=== PATIENT | female | born 1940 | race African-American/Black ===

== ENCOUNTER 2018-11-05 07:39 | Emergency (ER) | payer OTHER ==
--- OUTSIDE RECORDS SUMMARY | 2018-11-05 07:43 | XMS REPORT ---
:1940 [facility] Providers Name Role Phone Beck Bernstein Provider Role Unavailable Encounters Encounter Location Date Unknown [place] September 13, 2014 Unknown [place], [place] Nov 29, 2014 Other [place] May 28, 2014 Refill [place] Jan 25, 2014 Unknown Beck [place], [place] Dec 10, 2013 Other [place] Jun 07, 2015 Unknown [place] Feb 23, 2014 Unknown Beck [place] Jun 03, 2014 Test results Beck [place], [place] Apr 06, 2015 Refill Beck [place] Jan 05, 2014 Other Beck [place] Mar 25, 2014 Problems Problem Type Condition ICD-9 Code Onset Dates Condition Status Problem COPD (chronic obstructive J44.9 Active pulmonary disease) Problem Essential (primary) hypertension I10 Active Problem Hypercholesteremia E78.0 Active Problem Diabetes type 2, uncontrolled E11.65 Active Problem Diabetes mellitus, controlled E11.9 Active Problem Asthma attack 493.92 Active Problem CAD (coronary artery disease) I25.10 Active Problem Asthma J45.909 Active Medications Medication Code System Code Instructions Start End Status Dosage Date Date Duetact MEDISPAN [address]-97 30-2 MG Orally Jun 07, Active 1 tablet Once a day 2015 with the first main meal Januvia MiFiSPAN [id number] 100 mg Inactive 1 TABLET ONCE A DAY ORALLY Social History Social History Element Qualifiers Date Reported Alcohol no. June 17, 2015 Tuberculosis Exposure: No. June 17, 2015 Tobacco Use: . Status: Never smoker June 17, 2015 Diet: no. June 17, 2015 Depression no. June 17, 2015 Caffeine: no. June 17, 2015 Exercise: no. June 17, 2015 Fall Risk Assessment no. June 17, 2015 Summary Purpose [employer] Submission
--- OUTSIDE RECORDS SUMMARY | 2018-11-05 07:43 | XMS REPORT ---
:1940 [facility] Team Providers Name Role Phone Beck Bernstein Provider Role Unavailable Encounters Encounter Location Date Unknown Beck [place] September 13, 2014 Unknown Beck Bernstein [place], [place] Nov 29, 2014 Other Beck Bernstein [place], [place] May 28, 2014 Refill Beck Bernstein [place] Jan 25, 2014 Unknown Beck Bernstein MD, [place] Dec 10, 2013 Unknown Beck Bernstein [place], [place] Feb 23, 2014 Unknown Beck Bernstein MD, [place] Jun 03, 2014 Test results Beck Bernstein MD, [place] Apr 06, 2015 Refill Beck Bernstein [place], [place] Jan 05, 2014 Other Beck Bernstein MD, [place] Mar 25, 2014 Unknown Beck Bernstein MD, [place] Apr 29, 2015 Refill Beck Bernstein [place], [place] September 14, 2015 Other Beck Bernstein MD, [place] Jun 07, 2015 Unknown Beck Bernstein [place], [place] June 24, 2015 Problems Problem Type Condition ICD-9 Code Onset [...] Medications Medication Code System Code Instructions Start Date End Date Status Dosage Duetact MEDISPAN 34796-787 30-2 MG Orally as Active TAKE 1 2-30 directed TABLET ONE TIME DAILY WITH THE FIRST MAIN MEAL Social History Social History Element Qualifiers Date Reported Alcohol no. September 22, 2015 Tuberculosis Exposure: No. September 22, 2015 Tobacco Use: . Status: Never smoker September 22, 2015 Diet: no. September 22, 2015 Depression no. September 22, 2015 Caffeine: no. September 22, 2015 Exercise: no. September 22, 2015 Fall Risk Assessment no. September 22, 2015 Family history Qualifier Description Comment Date Reported Maternal Grandmother Comment not available September 22, 2015 Paternal Grandmother Comment not available September 22, 2015 Siblings alive Comment not available September 22, 2015 Maternal Grandfather Comment not available September 22, 2015 Children Comment not available September 22, 2015 Father Comment not available September 22, 2015 Paternal Grandfather Comment not available September 22, 2015 Mother Comment not available September 22, 2015 Other: Comment not available September 22, 2015 Summary Purpose [employer] Submission
--- OUTSIDE RECORDS SUMMARY | 2018-11-05 07:43 | XMS REPORT ---
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 Problem BMI 38.0-38.9,adult Z68.38 Active Problem Morbid (severe) obesity due to E66.01 Active excess calories Problem Gastroesophageal reflux disease K21.9 Active without esophagitis Problem Asthma J45.909 Active Problem CAD (coronary artery disease) I25.10 Active Problem Body mass index (BMI) of 40.0-44.9 Z68.41 Active in adult Problem Diabetes mellitus, controlled E11.9 Active Problem Mild cognitive impairment G31.84 Active Problem Cataract extraction status of left Z98.42 Active eye Problem COPD (chronic obstructive pulmonary J44.9 Active disease) Problem senior care current use of aspirin Z79.82 Active Problem senior care current use of insulin Z79.4 Active Problem 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
--- OUTSIDE RECORDS SUMMARY | 2018-11-05 07:43 | XMS REPORT | Continuity of Care Document ---
:1940 Author Organization [employer] [facility] Care Team Providers Name Role Phone [employer] [facility] Unavailable Unavailable Problems Problem Status Onset Classification Date Comments Source Date Reported ED Active 12/20/19 [facility] Polymyalgia Active 10/23/19 Problem 10/29/2017 Data rheumatica8 14 migrated Medical from [facility] on 09/11/14. [place] Polymyalgia Active 10/23/19 Problem 08/17/2018 Data rheumatica7 14 migrated Medical from [facility] on 09/11/14. Peripheral Active 07/10/19 Problem 10/29/2017 Data circulatory disorder 14 migrated Medical associated with type from [facility] [employer], 2 diabetes mellitus7 [facility] [place] on 09/11/14. [place] Peripheral Active 07/10/19 Problem 08/17/2018 Data circulatory disorder 14 migrated Medical associated with type from [facility] 2 diabetes mellitus6 [facility] on 09/11/14. Acute renal failure Active 06/26/19 Problem 08/17/2018 Data syndrome1 14 migrated Medical from [facility], [facility] on 09/11/14. [facility] Chronic kidney Active 06/26/19 Problem 08/17/2018 Data disease stage 33 14 migrated Medical from [facility], [facility] on 09/11/14. [facility] Gastroesophageal Active 03/23/20 Problem 08/17/2018 Data reflux disease5 13 migrated Medical from [facility], [facility] [place] on 09/11/14. [facility] Renal disorder Active 10/28/19 Problem 10/29/2017 Data associated with type 13 migrated Medical 1 diabetes mellitus9 from [facility] on 09/11/14. [facility] Renal disorder Active 10/28/19 Problem 08/17/2018 Data associated with type 13 migrated Medical 1 diabetes mellitus8 from [facility] on 09/11/14. Anemia2 Active 03/04/20 Problem 08/17/2018 Data 12 migrated Medical from [facility] [employer] [place] on 09/11/14. [place] Presence of Active Problem 08/30/2017 Beck J artificial larynx Bernstein Slow transit Active Problem 08/30/2017 Beck J constipation Bernstein Presence of coronary Active Problem 08/30/2017 Beck J angioplasty implant Bernstein and graft Diabetes mellitus, Active Problem 08/30/2017 Beck J controlled Bernstein Asthma Active Problem 08/30/2017 Beck J Bernstein Body mass index of Active Problem 08/30/2017 Beck J 40.0-44.9 in adult Bernstein Essential Active Problem 08/30/2017 Beck J hypertension Bernstein Gastro-esophageal Active Problem 08/30/2017 Beck J reflux disease Bernstein without esophagitis CAD Active Problem 08/30/2017 Beck J Bernstein Diabetes type 2, Active Problem 08/30/2017 Beck J uncontrolled Bernstein Type 2 diabetes Active Problem 08/30/2017 Beck J mellitus with Bernstein diabetic polyneuropathy COPD Active Problem 08/30/2017 Beck J Bernstein Morbid obesity due to Active Problem 08/30/2017 Beck J excess calories Bernstein Cataract extraction Active Problem 08/30/2017 Beck J status of left eye Bernstein Secondary Active Problem 08/30/2017 Beck J noninfectious Bernstein iridocyclitis of right eye shelter current use Active Problem 08/30/2017 Beck [place] of aspirin Bernstein Vitreous degeneration Active Problem 08/30/2017 Beck J of right eye Bernstein Mild cognitive Active Problem 08/30/2017 Beck 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, [facility] [place] on 09/11/14. [facility] Hypercholesterolemia6 Active Problem 10/29/2017 Data migrated Medical from [facility], [facility] on 09/11/14. [facility] Hyperlipidemia Active Problem 08/17/2018 Medical Group Morbid obesity Active Problem 08/17/2018 Medical Group Orthostatic Active Problem 08/17/2018 hypotension Medical Group Medications Medication Details Route Status Patient Ordering Order Source Instructions Provider Date tizanidine 4 mg 4 mg=1 tab, Active oral tablet PO, 019 Medical Bedtime, Group PRN for muscle spasm, # 30 tab, 0 Refill(s), Pharmacy: [facility] [id number] Ipratropium 2 spray, Active [place] 0.042 NASAL, TID, 018 Medical MG/ACTUAT PRN for Group Metered Dose cold Nasal [place] symptoms, [Atrovent] [place] in both nostrils, # 1 ea, 1 Refill(s), Pharmacy: [facility] [id number] losartan 100 mg See Active oral tablet Instruction 018 Medical s, TAKE 1 Group TABLET BY MOUTH DAILY, # 90 tab, 1 Refill(s), [facility]: [facility] carvedilol 12.5 12.5 mg=1 Active MH mg oral tablet tab, PO, 018 Medical Q12H, # 180 Group tab, 1 Refill(s), [facility]acy: [facility] Nexium See Active Instruction 018 Medical s, PO Group Daily, 0 Refill(s) atorvastatin 40 40 mg=1 Active MH mg oral tablet tab, PO, 018 Medical Bedtime, # Group 30 tab, 0 Refill(s) losartan 100 mg 100 mg=1 Active oral tablet tab, PO, 018 Medical Daily, # 90 Group tab, 0 Refill(s), Pharm[facility]: [facility] Breo Ellipta 1 puff, Active 100 mcg-25 mcg INHALATION, 018 Medical inhalation Daily, # 1 Group powder ea, 1 Refill(s), Pharmacy: [facility] [id number] Ranitidine 150 150 mg=1 Active MH MG Oral Capsule cap, PO, 018 Medical BID, # 180 Group cap, 0 Refill(s), Pharmacy: [facility] Ipratropium 2 spray, No MH [place] 0.042 NASAL, TID, Longer 018 Medical MG/ACTUAT PRN for Active Group Metered Dose cold Nasal [place] symptoms, [Atrovent] [place] in both nostrils, X 30 day, # 1 ea, 0 Refill(s), Pharmacy: [facility] [address] meclizine 12.5 12.5 mg=1 No MH mg oral tablet tab, PO, Longer 018 Medical BID, PRN Active Group Dizziness, X 15 day, # 30 tab, 0 Refill(s), Pharmacy: [facility] [address] Centrum Silver 1 tab, PO, Active MH Women's Daily, 0 018 Medical Refill(s) Group losartan 100 mg 100 mg=1 Active MH oral tablet tab, PO, 018 Medical Daily, # 30 Group tab, 0 Refill(s) Nitroglycerin 0.4 mg=1 Active MH 0.4 MG tab, SL, 018 Medical Sublingual Q5Min, PRN Group Tablet Chest Pain, [Nitrostat] # 100 tab, 0 Refill(s) clopidogrel 75 75 mg=1 Active MH mg oral tablet tab, PO, 018 Medical Daily, # 30 Group tab, 0 Refill(s) aspirin 325 mg 325 mg=1 Active MH tablet tab, PO, 018 Medical Q4H, PRN Group Fever, # 60 tab, 0 Refill(s) Ranitidine 150 150 mg=1 No MH MG Oral Capsule cap, PO, Longer 018 Medical BID, 0 Active Group Refill(s) empagliflozin 25 mg=1 Active MH 25 MG Oral tab, PO, 018 Medical Tablet QAM, 0 Group [Jardiance] Refill(s) 0.5 ML SUB-Q, 0 Active MH dulaglutide 1.5 Refill(s) 018 Medical MG/ML Prefilled Group Syringe [Trulicity] carvedilol 12.5 12.5 mg=1 Active MH mg oral tablet tab, PO, 018 Medical Q12H, # 60 Group tab, 0 Refill(s) Breo Ellipta 1 puff, Active MH 100 mcg-25 mcg INHALATION, 018 Medical inhalation Daily, 0 Group powder Refill(s) Breo Ellipta 1 puff Inhalation Active 100-25 MCG/INH Bernstein Beck Inhalation 017 J Once a day Bernstein Invokana 1 tablet Orally Active 300 MG Orally Bernstein Beck Once a day 016 J Bernstein Duetact 1 tablet Orally Active 30-2 MG Orally Bernstein Beck with the Once a day 016 J first main Bernstein meal Amaryl 1 tablet Orally Active 2 MG Orally Bernstein Beck with Once a day 016 J breakfast Bernstein or the first main meal of the day Januvia 1 TABLET NA No 100 mg Bernstein Beck ONCE A DAY Longer J ORALLY Active Bernstein Duetact TAKE 1 Orally Active 30-2 MG Orally Bernstein Beck TABLET ONE as directed J TIME DAILY Bernstein WITH THE FIRST MAIN MEAL Allergies, Adverse Reactions, Alerts Substance Category Reaction Severity Reaction Status Date Comments Source type Reported Food Shrimp Assertion Drug Active allergy Medical Group Immunizations Immunization Date Site Status Last Comments Source Given Updated Hx influenza Left completed [facility] Medical vaccine-unspecif 2 Deltoid Comment: Group, ied<sup>1</sup> fluzone. [place] Migrated from [facility] ; Data migrated from [email or web address] on 05/17/2015. Results No Data Provided for This Section Pathology Reports No Data Provided for This Section Diagnostic Reports No Data Provided for This Section Consultation Notes No Data Provided for This Section Discharge Summaries No Data Provided for This Section History and Physicals No Data Provided for This Section Vital Signs Vital Sign Value Date Comments Source Height 167.64 cm 05/19/2018 Medical Group Heart Rate 85 05/19/2018 Medical Group Temperature Oral (F) 98.3 F 05/19/2018 Medical Group Systolic (mm Hg) 155 05/19/2018 Medical Group Diastolic (mm Hg) 88 05/19/2018 Medical [facility] Heart Rate 76 01/28/2018 Medical Group Systolic (mm Hg) 134 01/28/2018 Medical Group Diastolic (mm Hg) 82 01/28/2018 Medical Group Weight 107.784 01/28/2018 Medical Group Systolic (mm Hg) 156 01/28/2018 Medical Group Diastolic (mm Hg) 84 01/28/2018 Medical Group Temperature Oral (F) 98.1 F 01/28/2018 Medical Group Heart Rate 86 01/28/2018 Medical Group BMI Calculated 38.98 07/23/2017 Medical Group Weight 109.545 07/23/2017 Medical Group Height 167.64 cm 07/23/2017 Medical Group Temperature Oral (F) 98.1 F 07/23/2017 Medical Group Systolic (mm Hg) 144 07/23/2017 Medical Group Diastolic (mm Hg) 75 07/23/2017 Medical Group Heart Rate 87 07/23/2017 Medical Group Weight 108.352 07/02/2017 Medical Group Height 167.64 cm 07/02/2017 Medical Group BMI Calculated 38.56 07/02/2017 Medical Group Temperature Oral (F) 97.6 F 07/02/2017 Medical Group Heart Rate 76 07/02/2017 Medical Group Systolic (mm Hg) 159 07/02/2017 Medical Group Diastolic (mm Hg) 85 07/02/2017 Medical Group Encounters Location Location Encounter Encounter Reason Attending ADM DC Status Source Details Type Number For Provider Date Date Visit [facility] Outpt Diag [id number] Rona Raul 10/20 10/21 [facility] [place] Beck J Unknown [id number] 12/10 12/10 [facility], [id number]- /2013 NATHNAIEL Golden MD [id number] [facility] Unknown [id number] 12/10 12/10 Beck [facility], [id number]-8bc6- /2013 NATHANIEL Golden MD [id number] [facility] Unknown [id number] 12/10 12/10 [facility], [id number]-[id number]- /2013 NATHANIEL Golden MD [id number] [facility] Unknown [id number] 12/10 12/10 Beck Bernstein, e-[id number]- /2013 J NATHANIEL GARCIA [id number] Bernstein Beck J Refill [id number] 01/05 01/05 Beck Bernstein, 3-5ws7-h9r9- J NATHANIEL GARCIA [id number] Bernstein Beck J Refill [id number] 01/05 01/05 Beck Bernstein, [id number]- J NATHANIEL GARCIA [id number] Bernstein Beck J Refill [id number] 01/05 01/05 Beck Bernstein, [id number]-1567- J NATHANIEL GARCIA [id number] Bernstein Beck J Refill [id number] 01/05 01/05 Beck Bernstein, [id number]- J NATHANIEL GARCIA [id number] [facility] [id number] 01/25 01/25 Beck Bernstein, [id number]- J NATHANIEL GARCIA [id number] Bernstein Beck J Refill [id number] 01/25 01/25 Beck Bernstein, [id number]-[id number]- NATHANIEL Golden MD [id number] Bernsteni Beck J Refill [id number] 01/25 01/25 Beck Bernstein, [id number]- J NATHANIEL GARCIA [id number] Bernstein Beck J Refill [id number] 01/25 01/25 Beck Bernstein, [id number]- J NATHANIEL GARCIA [id number] Bernstein Beck J Unknown [id number] 02/23 02/23 Beck Bernstein, n-[id number]- /2013 J NATHANIEL GARCIA [id number] Bernstein Beck J Unknown [id number] 02/23 02/23 Beck Bernstein, [id number]- /2013 J NATHANIEL GARCIA [id number] Bernstein Beck J Unknown [id number] 02/23 02/23 Beck Bernstein, [id number]-b659- /2013 J NATHANIEL GARCIA [id number] [facility] [id number] 02/23 02/23 Beck Bernstein, [id number]- /2013 J NATHANIEL GARC[facility] [id number] [facility] [id number] 03/25 03/25 Beck Bernstein, 1-9c7m-hv69- J NATHANIEL GARCIA [id number] [facility] Other [id number] 03/25 03/25 Beck Bernstein, k-95tm-hum5- /2013 J NATHANIEL GARCIA [id number] [facility] Other [id number] 03/25 03/25 Beck Bernstein, [id number]-6736- /2013 NATHANIEL Golden MD [id number] [facility] Other [id number] 03/25 03/25 [facility], [id number]- /2013 NATHANIEL Golden MD [id number] [facility] Other [id number] 05/28 05/28 Beck Bernstein, k-[id number]- /2014 J NATHANIEL GARCIA [id number] [facility] Other [id number] 05/28 05/28 [facility], g-4nv9-7her- /2014 NATHANIEL Golden MD [id number] [facility] Other [id number] 05/28 05/28 [facility], b-[id number]- /2014 J , NATHANIEL [id number] [facility] Other [id number] 05/28 05/28 [facility], 1-51o7-o827- /2014 J , NATHANIEL [id number] [facility] J Unknown [id number] 06/03 06/03 [facility], d-[id number]- /2014 J NATHANIEL GARCIA [id number] [facility] J Unknown [id number] 06/03 06/03 [facility], [id number]-[id number]-[id number]- /2014 J NATHANIEL GARCIA [id number] [facility] J Unknown [id number] 06/03 06/03 [facility], [id number]-a943- /2014 J NATHANIEL GARCIA [id number] [facility] Unknown [id number] 06/03 06/03 [facility], p-0733-468n- J NATHANIEL GARCIA [id number] [facility] Unknown [id number] 09/13 09/13 [facility], 4-1612-e77r- /2014 J NATHANIEL GARCIA [id number] [facility] Unknown [id number] 09/13 09/13 [facility], 1-1q6b-o53w- /2014 J NATHANIEL GARCIA [id number] [facility] J Unknown [id number] 09/13 09/13 [facility], 8-3y7g-s15a- J NATHANIEL GARCIA [id number] [facility] J Unknown [id number] 09/13 09/13 [facility], 1-029n-844a- /2014 J NATHANIEL GARCIA [id number] [facility] Unknown [id number] 11/29 11/29 [facility], p-[id number]-v251- /2014 J , NATHANIEL [id number] [facility] J Unknown [id number] 11/29 11/29 [facility], 3-486b-ypnd- /2014 J , NATHANIEL [id number] [facility] J Unknown [id number] 11/29 11/29 [facility], 6-42po-q152- /2014 J , NATHANIEL [id number] [facility] Unknown [id number] 11/29 11/29 [facility], 1-3ms4-vc32- /2014 J , NATHANIEL [id number] [facility] Test [id number] 04/06 04/06 [facility], results [id number]- J , NATHANIEL [id number] [facility] Test [id number] 04/06 04/06 [facility], results [id number]- /2014 J , NATHANIEL [id number] [facility] Test [id number] 04/06 04/06 [facility], results [id number]- /2014 J , [place] [id number] [facility] Test [id number] 04/06 04/06 [facility], results [id number]- /2014 J NATHANIEL GARCIA [id number] [facility] Unknown [id number] 04/29 04/29 [facility], [id number]- /2015 J NATHANIEL GARCIA [id number] [facility] Unknown [id number] 04/29 04/29 [facility], [id number]- /2015 J NATHANIEL GARCIA [id number] Bernstein Beck J Unknown [id number] 04/29 04/29 Beck Bernstein, e-[id number]-[id number]- /2015 J NATHANIEL GARCIA [id number] [facility] Other [id number] 06/07 06/07 Beck Bernstein, 8-0528-d159- /2015 J NATHANIEL GARCIA [id number] [facility] Other [id number] 06/07 06/07 Beck Bernstein, [id number]- /2015 J NATHANIEL GARCIA [id number] [facility] Other [id number] 06/07 06/07 [facility] Bernstein, g-[id number]-30k5- /2015 J NATHANIEL GARCIA [id number] [facility] Other [id number] 06/07 06/07 [facility] Bernstein, [id number]-2981- /2015 J NATHANIEL GARCIA [id number] [facility] Unknown [id number] 06/23 06/23 [facility], 0-1303-2e14- J NATHANIEL GARCIA [id number] [facility] J Unknown [id number] 06/23 06/23 [facility], [id number]-lwp0- /2015 NATHANIEL Golden MD [id number] [facility] Unknown [id number] 06/23 06/23 [facility], 1-3l30-x78y- /2015 NATHANIEL Golden MD [id number] [facility] J Refill [id number] 09/13 09/13 Beck Bernstein, 5-51di-03j0- /2015 NATHANIEL Golden MD [id number] [facility] [id number] Daryn Henson 12/19 12/20 [facility] [place] /2015 [place] Outpatient [id number] ISABELLA 07/02 [facility] Outpatient [id number] Isabella 07/02 07/03 Medicine [place] /2017 Medical [facility] Outpatient [id number] ISABELLA 07/[address] [facility]ER [facility] Family Outpatient [id number] Isabella 07/23 07/24 [facility] [place] /2017 Medical [facility] Outpatient [id number] ISABELLA 01/28 Active [facility] Outpatient [id number] Isabella 01/28 01/29 [facility] [place] /2017 Medical [facility] Outpatient [id number] ISABELLA 05/19 [facility] [id number] Isabella 05/19 05/20 [facility] [place] /2018 Medical [facility] Procedures Procedure Code Date Perfomer Comments Source Bone density [id number] 01/28/2018 Never done Medical scan<sup>1</sup> Group Diabetic retinal [id number] 06/28/2017 wnl per pt Medical eye Group exam<sup>2</sup> Full sleep study [id number] 12/20/2015 Medical Group Cataract [id number] 09/05/2015 Right Eye - Medical surgery<sup>1</sup Cataract Group > Cataract [id number] 09/05/2015 Right Eye - Medical surgery<sup>3</sup Cataract Group > Fecal occult blood [id number] 07/11/2012 normal Medical screening<sup>4</s Group up> Operation<sup>2</s [id number] 10/21/2010 Stent Implant Medical up> - RCA Group Operation<sup>5</s [id number] 10/21/2010 Stent Implant Medical up> - RCA Group Colonoscopy [id number] 04/15/2010 Medical Group Mammogram<sup>6</s [id number] wnl per pt Medical up> Group Assessment and Plan No Data Provided for This Section Plan of Care No Data Provided for This Section Social History Social History Date Source Social History TypeResponse 05/19/2018 Medical Group Smoking Status Never smoker; Type: Cigarettes; Ready to change: No; Concerns about tobacco use in household: No; Exposure to Tobacco Smoke None; Cigarette Smoking Last 365 Days No; Reg Smoking Cessation Counseling No entered on: 05/19/18 No data available for this section 12/21/2015 [employer] Social History ElementQualifiersDate Reported 09/22/2015 Beck Bernstein Alcohol no. September 22, 2015 Tuberculosis Exposure: No. September 22, 2015 Tobacco Use: . Status: Never smoker September 22, 2015 Diet: no. September 22, 2015 Depression no. September 22, 2015 Caffeine: no. September 22, 2015 Exercise: no. September 22, 2015 Fall Risk Assessment no. September 22, 2015 Family History Value Date Source QualifierDescriptionCommentDate Reported 09/30/2015 Beck Bernstein Maternal Grandmother Comment not available September 22, [...] Other: Comment not available September 22, 2015 Advance Directives No Data Provided for This Section Functional Status No Data Provided for This Section
--- OUTSIDE RECORDS SUMMARY | 2018-11-05 07:43 | XMS REPORT ---
:1940 Author Organization [employer] Care Team Providers Name Role Phone Beck Bernstein Provider Role Unavailable Allergies No Known Allergies Problems Problem Type Condition Code Onset Dates Condition Status Problem Slow transit constipation K59.01 Active Problem Diabetes type 2, uncontrolled E11.65 Active Problem Gastro-esophageal reflux disease K21.9 Active without esophagitis Problem BMI 38.0-38.9,adult Z68.38 Active Problem Morbid (severe) obesity due to E66.01 Active excess calories Problem Body mass index (BMI) of 40.0-44.9 Z68.41 Active in adult Problem BMI 37.0-37.9, adult Z68.37 Active Problem CAD (coronary artery disease) I25.10 Active Problem Essential (primary) hypertension I10 Active Problem Diabetes mellitus, controlled E11.9 Active Problem Asthma J45.909 Active Problem care home current use of aspirin Z79.82 Active Problem Mild cognitive impairment G31.84 Active Problem 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
--- OUTSIDE RECORDS SUMMARY | 2018-11-05 07:43 | XMS REPORT ---
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 Active Problem Slow transit constipation K59.01 Active Problem Presence of coronary angioplasty Z95.5 Active implant and graft Problem Diabetes mellitus, controlled E11.9 Active Problem Asthma J45.909 Active Problem Body mass index (BMI) of 40.0-44.9 Z68.41 Active in adult Problem Essential (primary) hypertension I10 Active Problem Gastro-esophageal reflux disease K21.9 Active without esophagitis Problem CAD (coronary artery disease) I25.10 Active Problem Diabetes type 2, uncontrolled E11.65 Active Problem 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
--- OUTSIDE RECORDS SUMMARY | 2018-11-05 07:43 | XMS REPORT ---
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 Problem Diabetes type 2, uncontrolled E11.65 Active Problem Essential (primary) hypertension I10 Active Problem Body mass index (BMI) of 40.0-44.9 Z68.41 Active in adult Problem Diabetes mellitus, controlled E11.9 Active Problem COPD (chronic obstructive pulmonary J44.9 Active disease) Problem CAD (coronary artery disease) I25.10 Active Problem Asthma J45.909 Active 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.4 Active Problem 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
--- OUTSIDE RECORDS SUMMARY | 2018-11-05 07:43 | XMS REPORT ---
:1940 [facility] Care Team Providers Name Role Phone Beck [...] Beck Bernstein MD, PA Apr 29, 2015 Other Beck Bernstein MD, PA Jun [...] Medication Code System Code Instructions Start End Date Status Dosage Date Amaryl MEDISPAN 67005-538 2 MG Orally Once Apr 29, Active 1 tablet with 2-10 a day 2016 breakfast or the first main meal of the day Social History Social History Element Qualifiers Date [...]
--- OUTSIDE RECORDS SUMMARY | 2018-11-05 07:43 | XMS REPORT ---
:1940 [facility] Team Providers Name Role Phone Beck [...] Instructions Start Date End Date Status Dosage Invokana MEDISPAN 28523-471 300 MG Orally June 23July 23, Active 1 tablet 1-30 Once a day 2015 2015 Social History Social History Element Qualifiers Date [...]
--- OUTSIDE RECORDS SUMMARY | 2018-11-05 07:43 | XMS REPORT ---
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
--- OUTSIDE RECORDS SUMMARY | 2018-11-05 07:44 | XMS REPORT | Summary of Care ---
:1940 Author Organization [facility] Address [address] [place] [address]- Encounter HQ Arthurr_ev(FIN) [id number] Date(s): 07/23/17 - 07/23/17 [place] [address] [facility] [place] [address]- [phone] Discharge Disposition: Home or Self Care Attending Physician: Isabella Antony MD Vital Signs Most recent to oldest [Reference Range]: 1 Height 167.64 cm (07/23/17 4:09 PM) Temperature Oral [96.4-99.1 DegF] 98.1 DegF (07/23/17 4:09 PM) Blood Pressure [90-140/60-90 mmHg] 144/75 mmHg *HI* (07/23/17 4:09 PM) Peripheral Pulse Rate [60-100 bpm] 87 bpm (07/23/17 4:09 PM) Weight 109.545 kg (07/23/17 4:09 PM) Body Mass Index 38.98 m2 (07/23/17 4:09 PM) Problem List Condition Effective Dates Status Health Status Informant Acute renal failure syndrome1 06/25/13 Active Anemia2 03/04/12 Active Benign essential HTN(Confirmed) Active Chronic kidney disease stage 33 06/25/13 Active Coronary atherosclerosis4 Active Gastroesophageal reflux disease5 03/23/13 Active Hypercholesterolemia6 Active Hyperlipidemia(Confirmed) Active Morbid obesity(Confirmed) Active Orthostatic hypotension(Confirmed) Active Peripheral circulatory disorder 07/09/13 Active associated with type 2 diabetes mellitus7 Polymyalgia rheumatica8 10/22/13 Active Renal disorder associated with type 1 10/27/12 Active diabetes mellitus9 1Data migrated from [employer] on 09/11/14.2Data migrated from [employer] on 09/11/14.3Data migrated from [employer] on 09/11/14.4Data migrated from [employer] on 09/11/14.5Data migrated from [employer] on 09/11/14.6Data migrated from [employer] on 09/11/14.7Data migrated from [employer] on 09/11.8Data migrated from [employer] on 09/11/14.9Data migrated from [employer] on 09/11/14. Allergies, Adverse Reactions, Alerts Substance Reaction Severity Status NKDA1 Active Food Shrimp Active 1Data migrated from [employer] on 06/07/15. Originally documented as NKA. Medications Breo Ellipta 100 mcg-25 mcg inhalation powder 1 puff, INHALATION, Daily, # 1 ea, 1 Refill(s), Pharmacy: [id number] Start Date: 09/12/17 Status: Orderedlosartan 100 mg oral tablet 100 mg=1 tab, PO, Daily, # 90 tab, 0 Refill(s), Pharmacy: [facility] Start Date: 10/18/17 Status: Ordered Results No data available for this section Immunizations Given and Recorded Vaccine Date Status Refusal Reason Hx influenza vaccine-unspecified1 03/04/12 Given 1Result Comment: fluzone. Migrated from OBS ; Data migrated from [employer] on 05/17/2015. Procedures Procedure Date Related Diagnosis Body Site Status Cataract surgery1 09/05/15 Completed Operation2 10/21/10 Completed Colonoscopy 04/15/10 Completed 1Right Eye - Xvfqdyhe4Dnvhq Implant - RCA Social History Social History Type Response Smoking Status Never smoker; Type: Cigarettes; Ready to change: No; Concerns about tobacco use in household: No; Exposure to Tobacco Smoke None; Cigarette Smoking Last 365 Days No; Reg Smoking Cessation Counseling No entered on: 07/23/17 Assessment and Plan No data available for this section
--- OUTSIDE RECORDS SUMMARY | 2018-11-05 07:44 | XMS REPORT | Summary of Care ---
:1940 Author Organization [facility] Address [address] [place] [address]- Encounter HQ Shital_ev(FIN) [id number] Date(s): 01/28/18 - 01/28/18 [place] [address] [place] [address]- [phone] Discharge Disposition: Home or Self Care Attending Physician: Isabella Antony MD Vital Signs Most recent to oldest [Reference Range]: 1 2 Temperature Oral [96.4-99.1 DegF] 98.1 DegF (01/28/18 1:38 PM) Blood Pressure [90-140/60-90 mmHg] 134/82 mmHg 156/84 mmHg (01/28/18 1:55 PM) *HI* (01/28/18 1:38 PM) Peripheral Pulse Rate [60-100 bpm] 76 bpm 86 bpm (01/28/18 1:55 PM) (01/28/18 1:38 PM) Weight 107.784 kg (01/28/18 1:38 PM) Problem List Condition Effective Dates Status Health Status Informant Acute renal failure syndrome1 06/25/13 Active Anemia2 03/04/12 Active Benign essential HTN(Confirmed) Active Chronic kidney disease stage 33 06/25/13 Active Coronary atherosclerosis4 Active Gastroesophageal reflux disease5 03/23/13 Active Hyperlipidemia(Confirmed) Active Morbid obesity(Confirmed) Active Orthostatic hypotension(Confirmed) Active Peripheral circulatory disorder 07/09/13 Active associated with type 2 diabetes mellitus6 Polymyalgia rheumatica7 10/22/13 Active Renal disorder associated with type 1 10/27/12 Active diabetes mellitus8 1Data migrated from [employer] on 09/11/14.2Data migrated from [employer] on 09/11/14.3Data migrated from [employer] on 09/11/14.4Data migrated from [employer] on 09/11/14.5Data migrated from [employer] on 09/11/14.6Data migrated from [employer] on 09/11/14.7Data migrated from [employer] on 09/11.8Data migrated from [employer] on 09/11/14. Allergies, Adverse Reactions, Alerts Substance Reaction Severity Status NKDA1 Active Food Shrimp Active 1Data migrated from [employer] on 06/07/15. Originally documented as NKA. Medications atorvastatin 40 mg oral tablet 40 mg=1 tab, PO, Bedtime, # 30 tab, 0 Refill(s) Start Date: 01/28/18 Status: OrderedAtrovent Nasal 0.06% nasal spray 2 spray, NASAL, TID, PRN for cold symptoms, [place] in both nostrils, # 1 ea, 1 Refill(s), Pharmacy: [id number] Start Date: 01/28/18 Status: Orderedcarvedilol 12.5 mg oral tablet 12.5 mg=1 tab, PO, Q12H, # 180 tab, 1 Refill(s), Pharmacy: [facility] Start Date: 01/28/18 Status: Orderedlosartan 100 mg oral tablet See Instructions, TAKE 1 TABLET BY MOUTH DAILY, # 90 tab, 1 Refill(s), Pharmacy : [facility] Start Date: 01/28/18 Status: OrderedNexIUM See Instructions, PO Daily, 0 Refill(s) Start Date: 01/28/18 Status: Ordered Results No data available for this section Immunizations Given and Recorded Vaccine Date Status Refusal Reason Hx influenza vaccine-unspecified1 03/04/12 Given 1Result Comment: fluzone. Migrated from OBS ; Data migrated from [employer] on 05/17/2015. Procedures Procedure Date Related Diagnosis Body Site Status Bone density scan1 01/28/18 Completed Diabetic retinal eye exam2 06/28/17 Completed Full sleep study 12/20/15 Completed Cataract surgery3 09/05/15 Completed Fecal occult blood screening4 07/11/12 Completed Operation5 10/21/10 Completed Colonoscopy 04/15/10 Completed Mammogram6 Completed 1Never vydn2ujk per ve3Myptl Eye - Bnswcfol0pmezkl6Akcsk Implant - KGA0aai per pt Social History Social History Type Response Smoking Status Never smoker; Type: Cigarettes; Ready to change: No; Concerns about tobacco use in household: No; Exposure to Tobacco Smoke None; Cigarette Smoking Last 365 Days No; Reg Smoking Cessation Counseling No entered on: 05/19/18 Assessment and Plan No data available for this section
--- OUTSIDE RECORDS SUMMARY | 2018-11-05 07:44 | XMS REPORT | Summary of Care ---
:1940 Author Organization [facility] Address [address], [place] [address]- Encounter HQ Shital_ev([facility]) [id number] Date(s): 12/20/15 - 12/20/15 [facility] [address] [place] [address]- Discharge Disposition: Home or Self Care Attending Physician: Daryn Henson MD Admitting Physician: Daryn Henson MD Referring Physician: Daryn Henson MD Vital Signs No data available for this section Problem List Condition Effective Dates Status Health Status Informant Acute renal failure syndrome1 06/25/13 Active Anemia2 03/04/12 Active Chronic kidney disease stage 33 06/25/13 Active Coronary atherosclerosis4 Active Gastroesophageal reflux disease5 03/23/13 Active Hypercholesterolemia6 Active Peripheral circulatory disorder 07/09/13 Active associated [...] Alerts Substance Reaction Severity Status NKDA1 Active 1Data migrated from [employer] on 06/07/15. Originally documented as NKA. Medications No data available for this section Results No data available for this section Immunizations Given and Recorded Vaccine Date Status Refusal Reason Hx influenza vaccine-unspecified1 03/04/12 Given 1Result Comment: fluzone. Migrated from [facility] ; Data migrated from [employer] on 05/17/2015. Procedures No data available for this section Social History No data available for this section Assessment and Plan No data available for this section
--- OUTSIDE RECORDS SUMMARY | 2018-11-05 07:44 | XMS REPORT | Summary of Care ---
:1940 Author Encounter AMRITA Isaacs_ev([facility]) [id number] Date(s): 10/20/13 - 10/20/13 [facility] Outpatient Imaging [address] Discharge Disposition: Home Physician Attending: Rona Carter MD Reason for Visit 599.7 - HEMATURIA Problem List No data available for this section Allergies, Adverse Reactions, Alerts No data available for this section Medications No data available for this section Medications Administered During Your Visit No data available for this section Immunizations No data available for this section
--- OUTSIDE RECORDS SUMMARY | 2018-11-05 07:44 | XMS REPORT | Summary of Care ---
:1940 Author Organization [facility] Address [address] [place] [address]- Encounter HQ Shital_ev(FIN) [id number] Date(s): 05/19/18 - 05/19/18 [place] [address] [place] [address]- [phone] Discharge Disposition: Home or Self Care Attending Physician: Isabella Antony MD Vital Signs Most recent to oldest [Reference Range]: 1 Height 167.64 cm (05/19/18 11:19 AM) Temperature Oral [96.4-99.1 DegF] 98.3 DegF (05/19/18 11:19 AM) Blood Pressure [90-140/60-90 mmHg] 155/88 mmHg *HI* (05/19/18 11:19 AM) Peripheral Pulse Rate [60-100 bpm] 85 bpm (05/19/18 11:19 AM) Problem List Condition Effective Dates Status Health [...] 10/27/12 Active diabetes mellitus8 1Data migrated from [employer] on 09/11/14.2Data [...] on 06/07/15. Originally documented as NKA. Medications tizanidine 4 mg oral tablet 4 mg=1 tab, PO, Bedtime, PRN for muscle spasm, # 30 tab, 0 Refill(s), Pharmacy: [id number] Start Date: 05/19/18 Status: Ordered Results No data available for [...] Completed Colonoscopy 04/15/10 Completed Mammogram6 Completed 1Never aldp5sqi per pe7Hfzim Eye - Ytsubuma3wguwfn4Owdnn Implant - XKS3osa per pt Social History Social History Type Response Smoking Status Never smoker; Type: Cigarettes; Ready to change: No; Concerns about tobacco use in household: No; Exposure to Tobacco Smoke None; Cigarette Smoking Last 365 Days No; Reg Smoking Cessation Counseling No entered on: 05/19/18 Assessment and Plan No data available for this section
--- OUTSIDE RECORDS SUMMARY | 2018-11-05 07:44 | XMS REPORT | Summary of Care ---
:1940 Author Organization [facility] Address [address] [place] [address]- Encounter HQ Shital_ev(FIN) [id number] Date(s): 07/02/17 - 07/02/17 [place] [address] [facility] [place] [address]- [phone] Discharge Disposition: Home or Self Care Attending Physician: Isabella Antony MD Vital Signs Most recent to oldest [Reference Range]: 1 Height 167.64 cm (07/02/17 1:22 PM) Temperature Oral [96.4-99.1 DegF] 97.6 DegF (07/02/17 1:22 PM) Blood Pressure [90-140/60-90 mmHg] 159/85 mmHg *HI* (07/02/17 1:22 PM) Peripheral Pulse Rate [60-100 bpm] 76 bpm (07/02/17 1:22 PM) Weight 108.352 kg (07/02/17 1:22 PM) Body Mass Index 38.56 m2 (07/02/17 1:22 PM) Problem List Condition Effective Dates Status [...] 10/27/12 Active diabetes mellitus9 1Data migrated from [facility] on 09/11/14.2Data migrated from [employer] on [...] on 06/07/15. Originally documented as NKA. Medications aspirin 325 mg tablet 325 mg=1 tab, PO, Q4H, PRN Fever, # 60 tab, 0 Refill(s) Start Date: 07/02/17 Status: OrderedAtrovent Nasal 0.06% nasal spray 2 spray, NASAL, TID, PRN for cold symptoms, [place] in both nostrils, X 30 day, # 1 ea, 0 Refill(s), Pharmacy: [id number] Start Date: 07/02/17 Stop Date: 08/01/17 Status: CompletedBreo Ellipta 100 mcg-25 mcg inhalation powder 1 puff, INHALATION, Daily, 0 Refill(s) Start Date: 07/02/17 Status: Orderedcarvedilol 12.5 mg oral tablet 12.5 mg=1 tab, PO, Q12H, # 60 tab, 0 Refill(s) Start Date: 07/02/17 Status: OrderedCentrum Silver Women's 1 tab, PO, Daily, 0 Refill(s) Start Date: 07/02/17 Status: Orderedclopidogrel 75 mg oral tablet 75 mg=1 tab, PO, Daily, # 30 tab, 0 Refill(s) Start Date: 07/02/17 Status: OrderedJardiance 25 mg oral tablet 25 mg=1 tab, PO, QAM, 0 Refill(s) Start Date: 07/02/17 Status: Orderedlosartan 100 mg oral tablet 100 mg=1 tab, PO, Daily, # 30 tab, 0 Refill(s) Start Date: 07/02/17 Status: Orderedmeclizine 12.5 mg oral tablet 12.5 mg=1 tab, PO, BID, PRN Dizziness, X 15 day, # 30 tab, 0 Refill(s), [id number] Start Date: 07/02/17 Stop Date: 07/17/17 Status: CompletedNitrostat 0.4 mg sublingual tablet 0.4 mg=1 tab, SL, Q5Min, PRN Chest Pain, # 100 tab, 0 Refill(s) Start Date: 07/02/17 Status: Orderedranitidine 150 mg oral capsule 150 mg=1 cap, PO, BID, 0 Refill(s) Start Date: 07/02/17 Stop Date: 07/03/17 Status: Discontinuedranitidine 150 mg oral capsule 150 mg=1 cap, PO, BID, # 180 cap, 0 Refill(s), Pharmacy: [facility] Start Date: 07/03/17 Status: OrderedTrulicity Pen 0.75 mg/0.5 mL subcutaneous solution SUB-Q, 0 Refill(s) Start Date: 07/02/17 Status: Ordered Results No data available for this section Immunizations Given and Recorded Vaccine Date Status Refusal Reason Hx influenza vaccine-unspecified1 03/04/12 Given 1Result Comment: fluzone. Migrated from OBS ; Data migrated from [employer] on 05/17/2015. Procedures Procedure Date Related Diagnosis Body Site Status Cataract surgery1 09/05/15 Completed Operation2 10/21/10 Completed Colonoscopy 04/15/10 Completed 1Right Eye - Scckrkgg0Lpnky Implant - RCA Social History Social History Type Response Smoking Status Never smoker; Type: Cigarettes; Ready to change: No; Concerns about tobacco use in household: No; Exposure to Tobacco Smoke None; Cigarette Smoking Last 365 Days No; Reg Smoking Cessation Counseling No entered on: 07/23/17 Assessment and Plan No data available for this section
--- OUTSIDE RECORDS SUMMARY | 2018-11-05 07:44 | XMS REPORT | Summary of Care ---
:1940 Author Organization [facility] Address [address] [place] [address]- Encounter HQ Arthurr_ev(FIN) [id number] Date(s): 07/23/17 - 07/23/17 [place] [address] [facility] [place] [address]- [phone] Discharge Disposition: Home or Self Care Attending [...] 06/07/15. Originally documented as NKA. Medications No Known Medications Results No data available for this section Immunizations Given and Recorded Vaccine Date Status Refusal Reason Hx influenza vaccine-unspecified1 03/04/12 Given 1Result Comment: fluzone. Migrated from OBS ; Data migrated from [employer] on 05/17/2015. Procedures Procedure Date Related Diagnosis Body Site Status Cataract surgery1 09/05/15 Completed Operation2 10/21/10 Completed Colonoscopy 04/15/10 Completed 1Right Eye - Whrpfyaq6Vrabp Implant - RCA Social History Social History Type Response Smoking Status Never smoker; Type: Cigarettes; Ready to change: No; Concerns about tobacco use in household: No; Exposure to Tobacco Smoke None; Cigarette Smoking Last 365 Days No; Reg Smoking Cessation Counseling No entered on: 07/23/17 Assessment and Plan No data available for this section
--- NOTE | 2018-11-05 08:33 | RAD REPORT ---
EXAM DESCRIPTION: US - Extremity Venous [facility] Ltd - 11/05/2018 8:22 am CLINICAL HISTORY: Right leg pain and swelling COMPARISON: None. TECHNIQUE: Real-time sonographic evaluation of the right lower extremity deep venous systems was per formed. FINDINGS: Normal compressibility, flow augmentation, phasic flow and spontaneous flow are identified in the right lower extremity common femoral, superficial femoral, popliteal and posterior tibial vei ns. No intraluminal filling defects seen. IMPRESSION: No DVT in the right lower extremity.
--- NOTE | 2018-11-05 10:11 | ER ---
Nurse's Notes [facility] Name: Tegan Lee Age: 78 yrs Sex: Female : 1940 Arrival Date: 11/05/2018 Time: 07:43 Bed 5 Private MD: Diagnosis: Effusion, right knee;Pain in right knee Presentation: 11/05 07:49 Presenting complaint: Patient states: last Saturday, i started feeling pain on my R hj knee and its getting worse and started to swell as well; denies trauma to the area; denies hx of gout or arthritis;. Transition of care: patient was not received from another setting of care. Onset of symptoms was November 05, 2018. Risk Assessment: Do you want to hurt yourself or someone else? Patient reports no desire to harm self or others. Initial Sepsis Screen: Does the patient meet any 2 criteria? No. Patient's initial sepsis screen is negative. Does the patient have a suspected source of infection? No. Patient's initial sepsis screen is negative. Care prior to arrival: None. 07:49 Method Of Arrival: Ambulatory 07:49 Acuity: ALEJO 4 hj Triage Assessment: 07:53 General: Appears in no apparent distress. uncomfortable, Behavior is calm, cooperative, hj appropriate for age. Pain: Complains of pain in right knee. Historical: - Allergies: 07:52 shrimp; hj - Home Meds: 07:52 Plavix 75 mg Oral tab 1 tab once daily [Active]; losartan 100 mg oral tab 1 tab once hj daily [Active]; ranitidine HCl 150 mg Oral cap 1 cap once daily [Active]; atorvastatin 40 mg oral tab 1 tab once daily [Active]; Breo Ellipta 100-25 mcg/dose inhalation dsdv 1 puff once daily [Active]; Trulicity 1.5 mg/0.5 mL subcutaneous pnij daily [Active]; aspirin 325 mg Oral TbEC once daily [Active]; carvedilol 12.5 mg Oral tab 1 tab 2 times per day [Active]; Jardiance 25 mg Oral tab 1 tab once daily [Active]; - PMHx: 07:52 Diabetes - NIDDM; heart stents; Hyperlipidemia; Hypertension; hj - PSHx: 07:52 None; hj - Immunization history:: Adult Immunizations up to date. - Social history:: Smoking status: Patient/guardian denies using tobacco, Patient/guardian denies using alcohol. - Ebola Screening: : Patient negative for fever greater than or equal to 101.5 degrees Fahrenheit, and additional compatible Ebola Virus Disease symptoms Patient denies exposure to infectious person Patient denies travel to an Ebola-affected area in the 21 days before illness onset. - Family history:: not pertinent. - Hospitalizations: : No recent hospitalization is reported. Screenin:53 Abuse screen: Denies threats or abuse. Denies injuries from another. Nutritional hj screening: No deficits noted. On. Tuberculosis screening: No symptoms or risk factors identified. Fall Risk None identified. Assessment: 07:54 General: Appears in no apparent distress. uncomfortable, obese, Behavior is calm, hj cooperative, appropriate for age. Pain: Complains of pain in right knee. Neuro: Level of Consciousness is awake, alert, obeys commands, Oriented to person, place, time, situation, Appropriate for age. Cardiovascular: Denies chest pain, Capillary refill < 3 seconds Patient's skin is warm and dry. Respiratory: Airway is patent Respiratory effort is even, unlabored, Respiratory pattern is regular, symmetrical. GI: No signs and/or symptoms were reported involving the gastrointestinal system. : No signs and/or symptoms were reported regarding the genitourinary system. EENT: No signs and/or symptoms were reported regarding the EENT system. Derm: No signs and/or symptoms reported regarding the dermatologic system. Musculoskeletal: Reports pain in right knee. 08:30 Reassessment: awaiting results and POC;. hj 10:05 Reassessment: Patient and/or family updated on plan of care and expected duration. Pain hj level reassessed. Patient is alert, oriented x 3, equal unlabored respirations, skin warm/dry/pink. awaiting POC:. Vital Signs: 07:52 BP 152 / 71; Pulse 96; Resp 18; Temp 98; Pulse Ox 98% ; Weight 107.5 kg; Height 5 ft. 7 bp in. (170.18 cm); 08:56 BP 148 / 70; Pulse 92; Resp 18; Pulse Ox 100% on R/A; hj 10:05 BP 122 / 82; Pulse 89; Resp 18; Pulse Ox 97% on R/A; hj 07:52 Body Mass Index 37.12 (107.50 kg, 170.18 cm) bp ED Course: 07:43 Patient arrived in ED. mr 07:43 Manuel Siegel, RN is Primary Nurse. bp 07:44 Bishnu Matthews MD is Attending Physician. rn 07:50 Triage completed. hj 07:53 Arm band placed on right wrist. hj 07:53 Patient has correct armband on for positive identification. Bed in low position. Call hj light in reach. Side rails up X2. Adult w/ patient. 08:06 XRAY Knee RIGHT 3 view In Process Unspecified. EDMS 08:24 Extremity Venous Uni Ltd US In Process Unspecified. EDMS 09:12 Primary Nurse role handed off by Manuel Siegel, ADRIANA hj 09:12 Sae Kowalski, RN is Primary Nurse. hj 09:15 Chivo wrap to right knee. jb1 10:19 No provider procedures requiring assistance completed. Patient did not have IV access hj during this emergency room visit. Administered Medications: No medications were administered Outcome: 10:10 Discharge ordered by . rn 10:19 Discharged to home via wheelchair, with family. hj 10:19 Condition: stable 10:19 Discharge instructions given to patient, family, Instructed on discharge instructions, follow up and referral plans. Demonstrated understanding of instructions, follow-up care. 10:20 Patient left the ED. hj Signatures: Dispatcher [employer] EDMT Chris Heart jbGeovanny GarciaaVivian mr Bishnu Matthews MD MD rn Joaquin, Henry, ADRIANA RN Manuel Rosa, RN RN bp Corrections: (The following items were deleted from the chart) 07:50 07:49 Acuity: ALEJO 4 hj hj 07:53 07:49 Acuity: ALEJO 3 hj hj
--- NOTE | 2018-11-05 10:12 | RAD REPORT ---
EXAM DESCRIPTION: RAD - Knee Right 3 View - 11/05/2018 8:42 am CLINICAL HISTORY: Worsening knee pain, knee swelling COMPARISON: None. FINDINGS: No fracture, dislocation or periosteal reaction.Moderate joint effusion is present. There is spurring at the superior margin of the patella. Small marginal spurs are present in the medial and lateral compartments. There are questionable intra-articular loose body seen along the intercondylar notch and tibial spine. No joint space narrowing. No calcifications in the soft tissues surrounding the joint. Mild edema is seen anterior to the patella tendon. IMPRESSION: Degenerative changes are present at the knee joint along with joint effusion. Questionab le intra-articular loose body seen. No fracture or acute bone process seen. Clinical concerns for internal derangement or occult bony injury could be further assessed with MR im aging.
--- NOTE | 2018-11-05 10:12 | EDPHYS ---
Physician Documentation [facility] Name: Tegan Lee Age: 78 yrs Sex: Female : 1940 Arrival Date: 11/05/2018 Time: 07:43 Bed 5 Private MD: ED Physician Bishnu Matthews HPI: 11/05 07:55 This 78 yrs old Black Female presents to ER via Ambulatory with complaints of Knee rn swelling. 07:55 The patient presents with pain, swelling. The complaints affect the right knee. Onset: rn The symptoms/episode began/occurred 1 week(s) ago. Modifying factors: The symptoms are alleviated by elevating leg, OTC meds, remaining still, the symptoms are aggravated by movement, weight bearing, bending knee. Associated signs and symptoms: Pertinent negatives calf tenderness, fever, numbness, warmth, weakness. Severity of symptoms: At their worst the symptoms were moderate, in the emergency department the symptoms are unchanged. The patient has not experienced similar symptoms in the past. Reports right knee pain for about a week, reports was walking a lot in last 2 weeks, using flip flops, went on vacation and used same flip flops, no fever, no direct trauma, slowly getting worse. No recent procedure/surgery, no hx of gout, no warmth or redness of knee. Is able to walk on it, just hurts. . Historical: - Allergies: 07:52 shrimp; hj - Home Meds: 07:52 Plavix 75 mg Oral tab 1 tab once daily [Active]; losartan 100 mg oral tab 1 tab once hj daily [Active]; ranitidine HCl 150 mg Oral cap 1 cap once daily [Active]; atorvastatin 40 mg oral tab 1 tab once daily [Active]; Breo Ellipta 100-25 mcg/dose inhalation dsdv 1 puff once daily [Active]; Trulicity 1.5 mg/0.5 mL subcutaneous pnij daily [Active]; aspirin 325 mg Oral TbEC once daily [Active]; carvedilol 12.5 mg Oral tab 1 tab 2 times per day [Active]; Jardiance 25 mg Oral tab 1 tab once daily [Active]; - PMHx: 07:52 Diabetes - NIDDM; heart stents; Hyperlipidemia; Hypertension; hj - PSHx: 07:52 None; hj - Immunization history:: Adult Immunizations up to date. - Social history:: Smoking status: Patient/guardian denies using tobacco, Patient/guardian denies using alcohol. - Ebola Screening: : Patient negative for fever greater than or equal to 101.5 degrees Fahrenheit, and additional compatible Ebola Virus Disease symptoms Patient denies exposure to infectious person Patient denies travel to an Ebola-affected area in the 21 days before illness onset. - Family history:: not pertinent. - Hospitalizations: : No recent hospitalization is reported. ROS: 07:55 Constitutional: Negative for fever, chills, and weight loss, Eyes: Negative for injury, rn pain, redness, and discharge, Neck: Negative for injury, pain, and swelling, Cardiovascular: Negative for chest pain, palpitations, and edema, Respiratory: Negative for shortness of breath, cough, wheezing, and pleuritic chest pain, Abdomen/GI: Negative for abdominal pain, nausea, vomiting, diarrhea, and constipation, MS/Extremity: + right knee pain and swelling Skin: Negative for injury, rash, and discoloration, Neuro: Negative for headache, weakness, numbness, tingling, and seizure. Exam: 07:55 Constitutional: This is a well developed, well nourished patient who is awake, alert, rn and in no acute distress. Able to walk to bed with assistance. MS/ Extremity: Pulses equal, no cyanosis. Neurovascular intact. + suprapatellar right knee effusion, no erythema or warmth, + mild painful ROM right knee without bony tenderness. + mild fullness posterior right knee. Vital Signs: 07:52 BP 152 / 71; Pulse 96; Resp 18; Temp 98; Pulse Ox 98% ; Weight 107.5 kg; Height 5 ft. 7 bp in. (170.18 cm); 08:56 BP 148 / 70; Pulse 92; Resp 18; Pulse Ox 100% on R/A; hj 10:05 BP 122 / 82; Pulse 89; Resp 18; Pulse Ox 97% on R/A; hj 07:52 Body Mass Index 37.12 (107.50 kg, 170.18 cm) bp MDM: 07:44 Patient medically screened. rn 10:09 Differential diagnosis: tendonitis, arthritis, knee effusion. Data reviewed: vital rn signs, nurses notes, radiologic studies, doppler, plain films, and as a result, I will discharge patient. Counseling: I had a detailed discussion with the patient and/or guardian regarding: the historical points, exam findings, and any diagnostic results supporting the discharge/admit diagnosis, radiology results, the need for outpatient follow up, to return to the emergency department if symptoms worsen or persist or if there are any questions or concerns that arise at home. Response to treatment: the patient's symptoms have mildly improved after treatment, and as a result, I will discharge patient. Special discussion: I discussed with the patient/guardian in detail that at this point there is no indication for admission to the hospital. It is understood, however, that if the symptoms persist or worsen the patient needs to return immediately for re-evaluation. 11/05 07:55 Order name: XRAY Knee RIGHT 3 view; Complete Time: 10:13 rn 11/05 07:55 Order name: Extremity Venous Uni Ltd US; Complete Time: 10:13 rn Administered Medications: No medications were administered Disposition: 11/05/18 10:10 Discharged to Home. Impression: Effusion, right knee, Pain in right knee. - Condition is Stable. - Discharge Instructions: How to Use a Knee Brace, Knee Effusion, Knee Pain. - Medication Reconciliation Form, Thank You Letter, Antibiotic Education, Prescription Opioid Use form. - Follow up: Private Physician; When: As needed; Reason: Recheck today's complaints, Re-evaluation by your physician. - Problem is an ongoing problem. - Symptoms have improved. Signatures: Dispatcher [employer] EDMS Bishnu Matthews MD MD rn Joaquin, Henry, RN RN Corrections: (The following items were deleted from the chart) 10:20 10:10 11/05/2018 10:10 Discharged to Home. Impression: Effusion, right knee; Pain in hj right knee. Condition is Stable. Forms are Medication Reconciliation Form, Thank You Letter, Antibiotic Education, Prescription Opioid Use. Follow up: Private Physician; When: As needed; Reason: Recheck today's complaints, Re-evaluation by your physician. Problem is an ongoing problem. Symptoms have improved. rn
[2018-11-05 10:25] VITALS: TEMP 98
[2018-11-05 10:28] VITALS: BP 122/82; O2SAT 97
== END 2018-11-05 10:20 | disposition home or self-care (01) ==
LOC: ER 07:39
DX: M25.561 Pain in right knee (principal); M25.461 Effusion, right knee; E11.9 Type 2 diabetes mellitus without complications; E78.5 Hyperlipidemia, unspecified; I10 Essential (primary) hypertension; Z79.82 Long term (current) use of aspirin; Z91.013 Allergy to seafood
CPT/HCPCS: 93971; 99283